=== PATIENT | female | born 1965 | race African-American/Black ===

== ENCOUNTER 2018-02-06 18:08 | Emergency (ER) | payer BC ==
[~2018-02-06] VITALS: Ht 162.6 cm; Wt 85.0 kg
[2018-02-06] MEDS ORDERED: HYDR200T80 PO (18:13)
[2018-02-06] MEDS ORDERED: DIPHENHYDRAMINE 50MG/ML VIAL IV NR (20:15)
[2018-02-06] MEDS ORDERED: METHYLPREDNISOLONE SOD SUCC 125 MG/2 ML VIAL IV NR (20:15)
[2018-02-06] MEDS ORDERED: EPINEPHRINE 1:1000 1 MG/ML AMP IM NR (20:15)
[2018-02-06 22:00] VITALS: BP 112/73
== END 2018-02-06 22:00 | disposition home or self-care (01) ==
LOC: ER 18:08
DX: T78.04XA Anaphylactic reaction due to fruits and vegetables, initial encounter (principal); R06.00 Dyspnea, unspecified; R07.89 Other chest pain; Z88.1 Allergy status to other antibiotic agents; Z79.899 Other long term (current) drug therapy
CPT/HCPCS: 96372; 96374; 96375; 99284; J1200; J2930; J3490

== ENCOUNTER 2020-04-18 11:44 | Emergency (ER) | payer BC ==
[~2020-04-18] VITALS: Ht 160 cm; Wt 84.0 kg
[~2020-04-18 11:44] MED LIST: HYDR200T80 PO
[2020-04-18] MEDS ORDERED: PREDNISONE 20MG TABLET PO ONE (13:30)
[2020-04-18 13:50] VITALS: BP 163/91
== END 2020-04-18 13:51 | disposition home or self-care (01) ==
LOC: ER 11:51
DX: L27.2 Dermatitis due to ingested food (principal); Z88.1 Allergy status to other antibiotic agents
CPT/HCPCS: 99283; J7512